=== PATIENT | female | born 2000 | race Caucasian/White ===

== ENCOUNTER 2023-08-19 21:27 | Emergency (ER) | payer SELFPAY ==
[2023-08-19] MEDS ORDERED: Ibuprofen 600 MG Tab PO ONE (21:51)
[2023-08-19] MEDS ORDERED: Acetaminophen 500 MG Tab PO ONE (21:51)
[2023-08-19 22:28] LABS: CORONAVIRUS COVID-19 NAA NEGATIVE (NEGATIVE); INFLUENZA A NAA NEGATIVE (NEGATIVE); INFLUENZA B NAA NEGATIVE (NEGATIVE)
[2023-08-19] MEDS ORDERED: Amoxicillin 500 MG Cap PO ONE (22:35)
== END 2023-08-19 22:48 | disposition home or self-care (01) ==
LOC: MW.ED 21:27
DX: J02.0 Streptococcal pharyngitis (principal); Z20.822 Contact with and (suspected) exposure to COVID-19
CPT/HCPCS: 0240U; 87651; 99283; A9270

== ENCOUNTER 2023-11-06 09:43 | Emergency (ER) | payer SELFPAY ==
[2023-11-06] MEDS: Dexamethasone 10 MG/ML SDV PO STA (10:26)
[2023-11-06] MEDS: Acetaminophen 500 MG Tab PO STA (10:26)
[2023-11-06] MEDS: Ibuprofen 800 MG Tab PO STA (10:27)
[2023-11-06 11:01] LABS: CORONAVIRUS COVID-19 NAA NEGATIVE (NEGATIVE); INFLUENZA A NAA NEGATIVE (NEGATIVE); INFLUENZA B NAA NEGATIVE (NEGATIVE)
== END 2023-11-06 11:24 | disposition home or self-care (01) ==
LOC: MW.ED 09:43
DX: J02.9 Acute pharyngitis, unspecified (principal); Z75.8 Other problems related to medical facilities and other health care
CPT/HCPCS: 0240U; 87651; 99283; A9270; J8540

== ENCOUNTER 2024-03-29 16:56 | Emergency (ER) | payer SELFPAY ==
[2024-03-29] MEDS: Acetaminophen 500 MG Tab PO ONE (17:55)
[2024-03-29 18:38] LABS: CORONAVIRUS COVID-19 NAA POSITIVE (NEGATIVE); INFLUENZA A NAA NEGATIVE (NEGATIVE); INFLUENZA B NAA NEGATIVE (NEGATIVE); RESPIRATORY SYNCYTIAL VIR NAA NEGATIVE (NEGATIVE)
== END 2024-03-29 19:30 | disposition home or self-care (01) ==
LOC: MW.ED 16:56
DX: U07.1 COVID-19 (principal); F17.200 Nicotine dependence, unspecified, uncomplicated; Z75.8 Other problems related to medical facilities and other health care
CPT/HCPCS: 0241U; 99283; A9270